=== PATIENT | male | born 1990 | race African-American/Black ===

== ENCOUNTER 2019-03-07 13:08 | Emergency (ER) | payer SELFPAY ==
[~2019-03-07] VITALS: Ht 175.3 cm; Wt 65.0 kg
[2019-03-07 13:34] VITALS: BP 145/86
[2019-03-07] MEDS ORDERED: TETANUS, DIPHTHERIA, PERTUSSIS VAC/PF 0.5ML (>7YR OLD) IM ONE (16:15)
== END 2019-03-07 15:17 | disposition home or self-care (01) ==
LOC: ER 13:44
DX: S61.431A Puncture wound without foreign body of right hand, initial encounter (principal); X58.XXXA Exposure to other specified factors, initial encounter; Y93.89 Activity, other specified; Y92.9 Unspecified place or not applicable
CPT/HCPCS: 90715; 99282